=== PATIENT | male | born 1965 | race Caucasian/White ===

== ENCOUNTER 2019-07-18 12:01 | Outpatient (RCR) | payer OTHER, SELFPAY ==
--- NOTE | 2019-07-18 13:20 | PTOPEVAL ---
Thank you for referring this patient to [facility]. Please review, sign, date and return this plan of care BRANDT. I agree with and certify that the following plan of care is medically necessary. Referring Physician Date Admitting Provider: Attending Provider: PHYSICIAN NOT ON STAFF Referring Provider: *PT Outpatient Evaluation Start: 07/18/19 12:15 Freq: Status: Active Protocol: Document 07/18/19 12:15 J (Rec: 07/18/19 13:20 [facility] [id number]) Therapy Assessment Status Assessment Status Assessment Status Evaluation Evaluation Information Problem Diagnosis s/p L MICK Onset 07/07/19 Additional Evaluation Detail surgery performed by Dr. 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 he Family reports he had a MICK of the L hip on 07/07/19. he reports he is having trouble getting around his home, walking, standing, and has pain more now in the R hip as well. he reports has has difficulty getting dressed, putting on socks, and cooking/cleaning. he reports he does live with a friend. he reports last night he was in the hospital with blisters on his feet. he reports he had them popped by the hospital. he reports he is still on his antibiotics from his surgery. Prior Level of Function Comments Additional Prior Level of Function patient reports prior to Comments surgery, he reports he was using a walker for ambulation. he reports he was walking on a cane or a walker prior to December of 2018. he reports he had been using an AD since 2018. Pain Assessment Timing of Pain Assessment Timing of Pain Assessment Assessment Pain Scale Pain Scale Used Numeric (1 - 10) Self Report Pain Assessment Left Hip(s) Reported Pain Level 4 Pain Description Aching Pain Frequency Acute,Continuous Current Pain Intensity 4 Lowest Pain Intensity 4 Greatest Pain Intensity 10 Pain Aggravating Factors Changing Position,Exercise/
--- NOTE | 2019-08-29 17:17 | PTOPEVAL ---
Thank you for referring this patient to [facility]. Please review, sign, date and return this plan of care BRANDT. I agree with and certify that the following plan of care is medically necessary. Referring Physician Date Admitting Provider: Attending Provider: PHYSICIAN NOT ON STAFF Referring Provider: *PT Outpatient Evaluation Start: 07/18/19 12:15 Freq: Status: Active Protocol: Document 08/29/19 14:00 [facility] (Rec: 08/29/19 17:16 [facility] [id number]) Therapy Assessment Status Assessment Status Assessment Status Re-evaluation Evaluation Information Problem Diagnosis L MICK Additional Evaluation Detail lefs = 51% functionally declined. Subjective Information mr. gary reports he is sore Query Text:As Reported By Patient/ and tightness in the L hip, Family but more painful in the R hip this date. he reports increased pain with flexion/ bending up of his hip. Pain Assessment Timing of Pain Assessment Timing of Pain Assessment Assessment Pain Scale Pain Scale Used Numeric (1 - 10) Self Report Pain Assessment Right Hip(s) Reported Pain Level 7 Left Knee(s) Reported Pain Level 0 Left Hip(s) Reported Pain Level 3 Pain Score Pain Score 7,0,3: Self Report Lower Extremity Range of Motion Hip Range of Motion Left Hip Flexion Range of Motion - Active 65 Hip Flexion Range of Motion - Passive 90 Hip Lateral Rotation - Active 45 Lower Extremity Muscle Strength Testing Hip Strength Left Hip Flexion Strength 2+ Poor + Hip Abduction Strength 2+ Poor + Hip Lateral Rotation Strength 3- Fair - Muscle Length Testing Muscle Length Testing Left Hamstring Length 30 Query Text:(90 - 90 Position) Right Hamstring Length 30 Query Text:(90 - 90 Position) Gait Assessment Gait Assessment Ambulation Assistive Devices Cane Weight Bearing Status - Left Full Weight Bearing Status - Right Full Maintains Weight Bearing Status Yes Ambulation Distance 200 Query Text:(Feet) Ambulation Destination In Gym Ambulation Direction Forward Ambulation Surface Level,Smooth,Tile Ambulation Ability Standby Assistance Cues Needed For Ambulation Verbal Additional Ambulation Comments cueing for heel/toe gait mechanics and increasing speed for ambulation. Gait Pattern Assessment Gait Pattern Antalgic Gait Gait Pattern Observed Decreased Stride Length - Left
--- NOTE | 2019-09-15 11:17 | PCPTNOTE ---
09/15/19 - patient called and cancelled therapy visit this date. JTF
--- NOTE | 2019-11-28 07:10 | PCPTNOTE ---
11/28/19 - patient has not been to therapy since 09/12/19. he has been dealing with other medical issues since then and would like to DC skilled PT. as of this date, all progress towards goals will be taken from his most recent evaluation/note and patient will be dc'd from skilled PT services.
== END 2019-09-12 23:59 | disposition home or self-care (01) ==
LOC: CHSPT 12:01
DX: Z96.642 Presence of left artificial hip joint (principal)
CPT/HCPCS: 97110; 97162; 97530

== ENCOUNTER 2019-09-16 19:01 | Emergency (ER) | payer OTHER, SELFPAY ==
--- NOTE | 2019-09-16 19:02 | PC.NURSE ---
Pt arrived by [facility] with c/o generalized body pain and suicidal ideations. While attempting to help pt change into paper scrubs pt began yelling at this RN stating you don't have to be so god alysha ng mean . Explained to pt that no one is being mean to him and that he needs to change into the paper scrubs per policy. Pt states I ain't cooperating with you . Hiro RIZZO called.
--- NOTE | 2019-09-16 19:14 | PC.NURSE ---
Hiro RIZZO here to speak with pt.
[2019-09-16 19:30] VITALS: BP 111/71; PULSE 80; RESP 20; TEMP 36.9; O2SAT 98
--- NOTE | 2019-09-16 19:30 | PC.NURSE ---
Pt cooperative with staff at this time after speaking with Hiro RIZZO. Made pt aware of plan of care for all mental health patients who present to the ER including labs, urine, eval by Ryan Moise and dispo per Ryan Moise recommendations. Pt verbalizes understanding and is agreeable to plan.
--- NOTE | 2019-09-16 19:45 | PC.NURSE ---
Sitter at bedside for direct observation of pt. Pt remains calm, cooperative.
--- NOTE | 2019-09-16 19:50 | PC.NURSE ---
Dr Nance from [facility] returning call at this time.
--- NOTE | 2019-09-16 19:52 | ECG_ITS ---
Measurements Intervals [place] Rate: 84 P: 55 [place]: 155 QRS: 38 QRSD: 93 T: 49 QT: 377 QTc: 448 Interpretive Statements SINUS RHYTHM BASELINE ARTIFACT- I, II, III, AVR, AVL, AVF, V1-V6 NORMAL ECG Electronically Signed On 09-17-2019 8:33:26 CDT by Serafin Callahan D.O.
--- NOTE | 2019-09-16 20:09 | ED.PSYCH ---
HPI - Psych General Chief Complaint: Psychiatric Symptoms Stated Complaint: ambulance Time Seen by Provider: 09/16/19 19:50 Source: patient and EMS Mode of arrival: EMS History of Present Illness HPI Narrative: Moses is a 54-year-old male patient. He is brought to the emergency room from his home by ambulance. Moses apparently has had suicidal ideation. Apparently he had told Police that he wants to overdose on his medications and end it all. He told the same thing to the EMS. He also mentioned it to the nurse sent to me while he was in the emergency room. Moses has had left hip surgery at the [facility] last June. He is due to have the right hip replaced sometime in the future. He has lot of pain in the right hip. He had been given hydrocodone 30 day supply and he ran out of it. This had not been renewed. He says he has a lot of pain and it is hard for him to handle the pain. This is the reason he got depressed and wanted to end it all. He apparently drank beer this evening he has history of hypertension. He has history of arthritis. Moses also has history of bipolar disorder. He sees a psychiatrist at the [facility]. Moses denies any abdominal pain. There is no history of any vomiting or diarrhea. No history of chest pain. No shortness of breath. No history of hallucinations. Moses says that at 1 time he was noted to have atrial fibrillation but it was very transient and he is not on any anticoagulation except aspirin. He is in sinus rhythm now. MD complaint: suicidal ideation and feels depressed Duration: constant History of same: No ( Moses has bipolar disorder but he has no suicidal ideations in the past) Relieving factors: none Exacerbating factors: other ( see HPI narrative) Context: recent alcohol abuse and other ( Moses says that he has tried marijuana.) Associated psychiatric symptoms: depression, suicidal ideation and other ( No homicidality ideation) Associated symptoms: other ( See HPI narrative) Treatments prior to arrival: none If self harm: admits thoughts of self harm and has plan Details of plan: Moses said that he was going to take BP and pain medication over dose Related Data Home Medications Medication Instructions Recorded Confirmed Unable to Obtain Home Medications 09/16/19 09/16/19 Allergies Allergy/AdvReac Type Severity Reaction Status Date / Time No Known Allergies Allergy Verified 09/16/19 20:42 Review of Systems Review of Systems: All systems reviewed & are unremarkable except as noted in HPI and below Constitutional: Constitutional: Reports as per HPI, Reports no additional constitutional complaints, Denies chills and Denies fever(s) Eyes: Eyes: Reports as per HPI, Reports no additional eye complaints and Denies change in vision ENT: Reports system reviewed and no additional complaints, except as documented, Denies dysphagia, Denies vertigo, Denies dizziness, Denies epistaxis, Denies nasal congestion and Denies sore throat Cardiovascular: Cardiovascular: Reports as per HPI, Reports no additional cardiovascular complaints, Denies chest pain and Denies radiating jaw, neck or arm pain Respiratory: Respiratory: Reports as per HPI, Reports no additional respiratory complaints, Denies chest congestion, Denies dyspnea and Denies wheezing Gastrointestinal: Gastrointestinal: Reports as per HPI, Reports no additional gastrointestinal complaints, Denies abdominal pain, Denies diarrhea, Denies nausea and Denies vomiting Genitourinary: Genitourinary: Reports no additional male genitourinary complaints, Denies hematuria and Denies dysuria Musculoskeletal: Comments: Jose has history of arthritis. Has had left hip replaced. He is going to have the right hip replaced sometime in the near future. Integumentary/Breasts: Skin/Breast: Reports system reviewed and no additional complaints, except as docu, Denies erythema and Denies rash Neurologic: Reports system reviewed and no
[2019-09-16 20:10] LABS: Add Urine Microscopic? NO; Appearance Urine Clear (Clear); Bilirubin Urine Negative (Negative); Blood Urine Negative (Negative); Color Urine Yellow (Yellow); Glucose Urine UA Negative (Negative); Ketones Urine Negative (Negative); Leukocyte Esterase Ur Negative (Negative); Nitrate Urine Negative (Negative); Protein Urine Negative (Negative); Specific Grav Ur <= 1.005 (1.010-1.020); Urobilinogen Urine 0.2 mg/dL (0.2-1.0); pH Urine 5.5 (5.0-8.0)
[2019-09-16 20:16] LABS: Amphetamine Screen Urine Negative (Negative); Barbiturate Screen Urine Negative (Negative); Benzodiazepines Screen Urine Negative (Negative); Cannabinoid Screen Urine Negative (Negative); Cocaine Screen Urine Negative (Negative); Methadone Screen Urine Negative (Negative); Opiate Screen Urine Negative (Negative); Phencyclidine Screen Urine Negative (Negative)
[2019-09-16 20:23] LABS: Hematocrit 40.1 % (40.0-54.0); Hemoglobin 13.1 g/dL (14.0-18.0); Mean Corpuscular HGB Conc 32.7 g/dL (32.0-36.0); Mean Corpuscular Hemoglobin 28.3 pg (27.0-31.0); Mean Corpuscular Volume 86.6 fL (78.0-102.0); Mean Platelet Volume 11.9 fl (8.7-11.0); Platelet Count Result 207 K/mm3 (150-420); Red Blood Count 4.63 M/mm3 (4.70-6.10); Red Cell Distribution Width 14.8 % (11.6-14.4); White Blood Count 9.2 K/mm3 (4.8-10.8)
[2019-09-16 20:41] LABS: Band Neutrophils Percent 0 % (0-6); Basophils Absolute Manual 0.09 K/mm3 (0-0.1); Basophils Percent Manual 1 % (0-1); Eosinophils Absolute Manual 0.09 K/mm3 (0.02-0.5); Eosinophils Percent Manual 1 % (1-6); Lymphocytes Absolute Manual 2.11 K/mm3 (1.1-4.5); Lymphocytes Percent Manual 23 % (18-44); Monocytes Absolute Manual 0.73 K/mm3 (0.1-0.90); Monocytes Percent Manual 8 % (3-9); Neutrophils Absolute Manual 6.16 K/mm3 (1.3-6.7); Neutrophils Percent Manual 67 % (46-73); Platelet Estimate Adequate (Adequate); Total Cells Counted 100
--- NOTE | 2019-09-16 20:45 | PC.NURSE ---
Addendum entered by Emma Mattson RN 09/16/19 23:51: Sitter remains at bedside for direct observation of pt. Original Note: Pt states he takes Amlodipine, Mirtazipine, Abilify, and a medication for high cholesterol. Pt does not know dosages.
[2019-09-16 20:47] LABS: Anion Gap 14.7 mmol/L (7-16); Blood Urea Nitrogen 7 mg/dL (7-18); Calcium 8.8 mg/dL (8.5-10.1); Carbon Dioxide 24 mmol/L (21-32); Chloride 105 mmol/L (98-108); Estimated Glomerular Filt Rate > 60; Glucose 106 mg/dL (70-99); Osmolality Calculated 288 mOsm/kg (285-295); Potassium 3.7 mmol/L (3.5-5.1); Sodium 140 mmol/L (136-145); Thyroid Stimulating Hormone 3.34 uIU/mL (0.36-3.74)
[2019-09-16 20:48] LABS: Acetaminophen 0 ug/mL (10-30); Ethanol 110 mg/dL (0-6); Salicylate 7.2 mg/dL (2.8-20.0)
--- NOTE | 2019-09-16 20:54 | PC.NURSE ---
Pt states he has had suicidal thoughts for several days. Today pt developed plan to overdose on prescription anti-hypertensive medication. States the reason he has been having suicidal thoughts is related to the chronic right hip pain he experiences. States he had a prescription for Hydrocodone, however he ran out of pills and his physician would not refill the script. States today he felt that if he ended it all then he would no longer be in pain . States he has a poor support system, lives with 2 friends who have their own life and won't help him . Pt reports he has had 1 beer earlier today. The pt's eyes are reddened and the smell of alcohol is noted. Pt a
--- NOTE | 2019-09-16 21:45 | PC.NURSE ---
Pt calm, cooperative. Sitter remains at bedside. Food and drink provided at pt request.
--- NOTE | 2019-09-16 22:20 | PC.NURSE ---
nanotechnology engineering technician at bedside to draw repeat alcohol level.
[2019-09-16 22:38] LABS: Ethanol 62 mg/dL (0-6)
--- NOTE | 2019-09-16 22:45 | PC.NURSE ---
Sitter remains at bedside for direct observation. Pt calm, cooperative, watching tv. Awaiting repeat alcohol level results so [facility] can be called for eval.
--- NOTE | 2019-09-16 23:07 | PC.NURSE ---
Call placed to [facility], awaiting call back.
--- NOTE | 2019-09-16 23:12 | PC.NURSE ---
Spoke with Sharri from [facility]. States she will come to ER to zion pt.
--- NOTE | 2019-09-16 23:45 | PC.NURSE ---
Pt sleeping at this time. Sitter remains at bedside for direct observation.
[2019-09-17 00:13] VITALS: BP 129/72; PULSE 87; RESP 20; O2SAT 97
--- NOTE | 2019-09-17 00:14 | PC.NURSE ---
[facility] staff here in ER to zion pt. Pt awake, alert, calm. VS updated. Report to ESPERANZA Baker. Care transferred at this time.
--- NOTE | 2019-09-17 01:34 | PC.NURSE ---
0010 pt sleeping. awakened to speak with Sharri from [facility]. Sharri from [facility] states pt has been accepted to [facility]. awaiting call back from [facility] for further instructions. all information faxed per [phone] pt sleeping 0050 pt sleeping. 0105 pt sleeping. 0120 pt sleeping. 0135 Sharri going to other crisis. pt remains asleep.
--- NOTE | 2019-09-17 01:54 | PC.NURSE ---
0150 pt sleeping. call to [facility] spoke with david dotygatehouse attendant. awaiting call back.
--- NOTE | 2019-09-17 03:06 | PC.NURSE ---
call back from Bill technology administrator on duty from [facility], Dr. Mauro is reviewing chart to medically clear pt. will return call . Pt moved to Room #1 for direct vision of this magnetic tape typewriter operator. pt sleeping. awakens easily. notified of move. pt back to sleep.
--- NOTE | 2019-09-17 03:17 | PC.NURSE ---
spring forward time change0200 pt sleeping 0300 pt sleeping 0315 pt sleeping.
--- NOTE | 2019-09-17 04:23 | PC.NURSE ---
call from Dr Anderson from [facility]. pt clear for admission. awaiting call back. pt sleeping. easily awakened for vitals.
[2019-09-17 04:26] VITALS: BP 137/74; PULSE 75; RESP 20; TEMP 37.1; O2SAT 97
[2019-09-17 04:39] VITALS: BP 135/74; PULSE 75; RESP 20; TEMP 37.1; O2SAT 98
--- NOTE | 2019-09-17 04:51 | PC.NURSE ---
[facility] called for transfer . awaiting arrival.
== END 2019-09-17 05:24 ==
PROVIDERS: Emergency Provider Surgery
DX: R45.851 Suicidal ideations (principal); F32.9 Major depressive disorder, single episode, unspecified
CPT/HCPCS: 36415; 80048; 80307; 81003; 84443; 85025; 93005; 99285